=== PATIENT | female | born 1965 | race Caucasian/White ===

== ENCOUNTER → 2016-10-09 | Outpatient (CLI) | payer OTHER, MEDICARE ==
--- NOTE | ~2016-10-09 | ENPV ---
Vascular Lower Extremities DVT Study Procedure Demographics Patient Name ALEJANDRO SALAZAR Date of Study 10/09/2016 Patient Number [id number] Gender Female Date of 1965 Age 51 Visit Number [id number] Height Accession Number [id number] Weight Room Number BSA BMI Referring Sav Quan Fransisco Vicente MD Physician Physician Physician Ordering Physician Deidre Patino Director Of Business Development Hide Worker Boris Duarte T, [facility] Conclusions Summary No evidence of deep vein thrombosis or superficial thrombophlebitis in the right lower extremity. Procedure Type of Study: Veins:Lower Extremities DVT Study, Lower Extremity Right. Indications for Study:Pain. Appropriate Use Criteria:6 Patient Status:Routine. Study Location:Vascular Lab. Technical Quality:Good visualization. Velocities are measured in cm/s ; Diameters are measured in cm Right Lower Extremities DVT Study Measurements Right 2D and Doppler Measurements + + + + +------+------+ + !Location !Visualized!Compressibility!Thrombosis!Signal!Reflux!Reflux ! ! ! ! ! ! ! !(sec) ! + + + + +------+------+ + !GSV Thigh !Yes !Yes !None !Phasic! ! ! + + + + +------+------+ + !Common !Yes !Yes !None !Phasic! ! ! !Femoral ! ! ! ! ! ! ! + + + + +------+------+ + !Prox !Yes !Yes !None !Phasic! ! ! !Femoral ! ! ! ! ! ! ! + + + + +------+------+ + !Mid Femoral!Yes !Yes !None !Phasic! ! ! + + + + +------+------+ + !Dist !Yes !Yes !None !Phasic! ! ! !Femoral ! ! ! ! ! ! ! + + + + +------+------+ + !Popliteal !Yes !Yes !None !Phasic! ! ! + + + + +------+------+ + !PTV !Yes !Yes !None !Phasic! ! ! + + + + +------+------+ + !Peroneal !Yes !Yes !None !Phasic! ! ! + + + + +------+------+ + Left Lower Extremities DVT Study Measurements Left 2D and Doppler Measurements +---------+ + + +------+------+ + !Location !Visualized!Compressibility!Thrombosis!Signal!Reflux!Reflux (sec)! +---------+ + + +------+------+ + !GSV Thigh!Yes !Yes !None !Phasic! ! ! +---------+ + + +------+------+ + Signature dtt: EVAN JUÁREZ dtd: 10/09/16 1253 Physician Self Edit
== END | disposition disaster alternative care site (69) ==
LOC: GCAR 12:53
DX: M79.604 Pain in right leg (principal)